=== PATIENT | female | born 1955 | race Caucasian/White ===

== ENCOUNTER → 2016-12-15 | Outpatient (REF) | payer OTHER ==
[2016-12-15 14:07] LABS: CONTROL LINE MONO INT CTR LINE PRESENT
[2016-12-15 14:22] LABS: VITAMIN B12 LEVEL 690 PG/ML (247-911)
[2016-12-16 14:15] LABS: Lyme Disease IgG/IgM Antibodie <0.91 ISR (0.00-0.90); Lyme Disease IgM Ab Quantitati <0.80 index (0.00-0.79)
== END ==
LOC: M LAB REF 13:21
PROVIDERS: ATTEND Nurse Practitioner Family
DX: R53.83 Other fatigue (principal); R53.1 Weakness

== ENCOUNTER 2017-08-22 09:01 | Day surgery (SDC) | payer OTHER ==
[~2017-08-22] VITALS: Ht 157.5 cm; Wt 62.5 kg
[~2017-08-22 09:01] MED LIST: LEVO25TA5 PO; NS 1,000 ML IV ONE; VALA500T2 PO; VITA200016 PO
[2017-08-22] MEDS ORDERED: LIDOCAINE 2% INJ 100 MG/5 ML SDV (FOR ANES.) As Ordered ONE (09:28)
[2017-08-22] MEDS ORDERED: PROPOFOL 200 MG/20 ML VIAL As Ordered ONE (09:28)
--- NOTE | 2017-08-22 11:01 | ROOR ---
Patient Name: Sanam Kelly Procedure Date: 08/22/2017 10:42 AM Date of : 1955 Age: 62 Room: [facility] Gender: Female Note Status: Finalized Procedure: Colonoscopy Indications: High risk colon cancer surveillance: Personal history of colonic polyps Providers: Og PROCTOR MD Referring MD: Beto Camara MD Requesting Provider: Medicines: Monitored Anesthesia Care Complications: No immediate complications. Procedure: Pre-Anesthesia Assessment: - The heart rate, respiratory rate, oxygen saturations, blood pressure, adequacy of pulmonary ventilation, and response to care were monitored throughout the procedure. The Colonoscope was introduced through the anus and advanced to the cecum, identified by appendiceal orifice and ileocecal valve. The colonoscopy was performed without difficulty. The patient tolerated the procedure well. The quality of the bowel preparation was good. Findings: The perianal and digital rectal examinations were normal. (Exam: Complete, Prep: Good or Excellent.) The entire examined colon appeared normal on direct and retroflexion views. Small Internal Hemorrhoids. Impression: - (Exam: Complete, Prep: Good or Excellent.) - The colon is normal on direct and retroflexion views. - Small Internal Hemorrhoids. - No specimens collected. Recommendation: - Repeat colonoscopy in 10 years for screening purposes. Og Proctor MD Og PROCTOR MD 08/22/2017 11:01:30 AM This report has been signed electronically. Number of Addenda: 0 Note Initiated On: 08/22/2017 10:42 AM Estimated Blood Loss: Estimated blood loss: none.
[2017-08-22 11:32] VITALS: BP 141/70
== END 2017-08-22 11:37 | disposition home or self-care (01) ==
LOC: M OPP 09:01
PROVIDERS: ATTEND Internal Medicine Gastroenterology
DX: Z12.11 Encounter for screening for malignant neoplasm of colon (principal); Z80.0 Family history of malignant neoplasm of digestive organs; Z86.010 Personal history of colon polyps; K64.8 Other hemorrhoids; I47.1 Supraventricular tachycardia; E03.9 Hypothyroidism, unspecified; Z78.0 Asymptomatic menopausal state; Z88.3 Allergy status to other anti-infective agents; Z88.8 Allergy status to other drugs, medicaments and biological substances; Z79.899 Other long term (current) drug therapy; Z80.1 Family history of malignant neoplasm of trachea, bronchus and lung; Z80.3 Family history of malignant neoplasm of breast; Z80.8 Family history of malignant neoplasm of other organs or systems

== ENCOUNTER → 2018-10-10 | Outpatient (CLI) | payer OTHER ==
[~2018-10-10] MED LIST changes: -NS 1,000 ML IV ONE; -VALA500T2 PO; +VALA500T5 PO
--- NOTE | 2018-10-10 15:09 | REP ---
Chest two views HISTORY: Cough Comparison: None The lungs are clear. The heart is normal in size. The pulmonary vasculature is normal in appearance. The bony structure is intact. IMPRESSION: No acute disease. Electronically Signed by Negrito Mobley MD 10/10/2018 03:01 P
== END ==
LOC: M WUC 14:46
PROVIDERS: ATTEND Family Medicine
DX: R05 Cough (principal)

== ENCOUNTER → 2020-08-31 | Outpatient (CLI) | payer SELFPAY | LOC: M LABSMTC 12:26 | PROVIDERS: ATTEND Pediatrics | DX: Z20.828 Contact with and (suspected) exposure to other viral communicable diseases (principal) ==

== ENCOUNTER → 2021-07-19 | Outpatient (REF) | payer MEDICARE, OTHER | LOC: M LAB REF 16:38 | PROVIDERS: ATTEND Family Medicine | DX: Z01.84 Encounter for antibody response examination (principal) ==

== ENCOUNTER → 2022-03-09 | Outpatient (CLI) | payer MEDICARE, OTHER | LOC: M WHC 14:02 | PROVIDERS: ATTEND Family Medicine | DX: Z12.31 Encounter for screening mammogram for malignant neoplasm of breast (principal); Z80.3 Family history of malignant neoplasm of breast; Z80.0 Family history of malignant neoplasm of digestive organs ==

== ENCOUNTER → 2023-03-15 | Outpatient (CLI) | payer MEDICARE, OTHER | LOC: M WHC 13:33 | PROVIDERS: ATTEND Family Medicine | DX: Z12.31 Encounter for screening mammogram for malignant neoplasm of breast (principal); Z80.3 Family history of malignant neoplasm of breast ==

== ENCOUNTER → 2024-01-26 | Outpatient (CLI) | payer MEDICARE, OTHER | LOC: M WUC 10:16 | PROVIDERS: ATTEND Family Medicine | DX: R05.9 Cough, unspecified (principal) ==